=== PATIENT | female | born 1960 | race African-American/Black ===

== ENCOUNTER → 2017-03-14 | Outpatient (CLI) | payer OTHER ==
[~2017-03-14] MED LIST: BIOTIN1 MG PO; FLONASE 0.05%50 MCG NASAL; MUCINEX600 MG PO; PREDNISONE 20 M20 MG PO; PROTONIX40 MG PO; REPLACE1 EACH PO; VITAMIN B12 5500 MC1 PO; VITAMIN E 400I400 I1 PO
== END ==
LOC: RAD 01:48
DX: Z12.31 Encounter for screening mammogram for malignant neoplasm of breast (principal)

== ENCOUNTER → 2017-03-18 | Outpatient (CLI) | payer OTHER | LOC: ULTRA 10:59 | DX: N63 Unspecified lump in breast (principal) ==

== ENCOUNTER → 2017-04-21 | Outpatient (CLI) | payer OTHER ==
--- NOTE | ~2017-04-21 | S ---
[facility] [place] [address] SURGICAL PATH RPT PROCEDURE Name: MADY SIDDIQI Room #: REG [facility] Elizabeth.#: [id number] Admission: 04/21/17 Date of : 62 Discharge: Report #: [id number] Path Case #: [id number] PATHOLOGY REPORT COLLECTION DATE: 04/21/2017 RECEIVED DATE: 04/21/2017 SUBMITTING PHYS: Dr.Michael Mcdaniels OTHER PHYS: Dr. Velma Freed SPECIMEN(S) RECEIVED: A.Right breast 12:00, 5 cm FN * * * * * * * * * * * * FINAL DIAGNOSIS: "Right breast 12:00, 5 cm from nipple," image-guided needle biopsy: - Fibroadenoma, involving multiple cores, longest contiguous focus measuring 1.3 cm on the slide; no cytologic atypia or malignancy seen. (see comment) COMMENT: [employer] slides are co-reviewed with Dr. Rose Mccann. Clinical and radiographic correlation is recommended. (CLW:; 04/25/2017) PATHOLOGIST: Shahla Tobar M.D. REPORT ELECTRONICALLY SIGNED BY: Shahla Tobar M.D. DATE/TIME: 04/25/2017 22:14 * * * * * * * * * * * * GROSS PATHOLOGY: Received in formalin labeled "Mady Siddiqi, right breast 12:00 5 cm FN," are multiple needle cores of yellow-trivedi fibrofatty tissue measuring 1.7 x 1.5 x 0.3 cm in aggregate dimensions. The tissue is submitted in its entirety in cassette A1 through A3. The cold ischemic time is 15 minutes. The total formalin fixation time is 29 hours and 5 minutes. (TSD; 04/21/2017) CLINICAL HISTORY: Right breast nodule INITIAL CPT CODE(S): A; 46789 Professional services performed by [facility] at [facility] [address] [place] [address] SURGICAL PATH RPT PROCEDURE Name: SIDDIQIMADY [id number] Admission: 04/21/17 Date of : 62 Discharge: Report #: [id number] Path Case #: [id number] [address] [facility] , [place] [address] Technical services performed by [facility] at [address] [place] [address], [facility] [address] [address]. [facility] [address] [place] [address] PHONE: [phone] DIRECTOR: John Bonds M.D. * * * END OF REPORT * * *
== END | disposition home or self-care (01) ==
LOC: ULTRA 09:50
DX: D24.1 Benign neoplasm of right breast (principal)

== ENCOUNTER → 2017-10-12 | Outpatient (CLI) | payer OTHER | LOC: ULTRA 14:16 | DX: N63.10 Unspecified lump in the right breast, unspecified quadrant (principal) ==

== ENCOUNTER → 2018-02-07 | Outpatient (CLI) | payer OTHER | LOC: RAD 15:10 | DX: R92.8 Other abnormal and inconclusive findings on diagnostic imaging of breast (principal); N64.4 Mastodynia ==

== ENCOUNTER → 2018-08-24 | Outpatient (CLI) | payer OTHER | LOC: RAD 10:33 | DX: N64.4 Mastodynia (principal); R92.2 Inconclusive mammogram ==

== ENCOUNTER → 2019-10-25 | Outpatient (CLI) | payer OTHER | LOC: RAD 13:32 | DX: Z12.31 Encounter for screening mammogram for malignant neoplasm of breast (principal) ==

== ENCOUNTER → 2020-01-11 | Outpatient (CLI) | payer OTHER | LOC: ULTRA 10:19 | DX: N63.20 Unspecified lump in the left breast, unspecified quadrant (principal) ==

== ENCOUNTER → 2020-04-11 | Outpatient (CLI) | payer OTHER ==
[2020-04-11 09:15] LABS: CREATININE 0.7 mg/dL (0.6-1.0)
== END ==
LOC: CAT 08:04
PROVIDERS: ATTEND Obstetrics & Gynecology
DX: R10.9 Unspecified abdominal pain (principal)

== ENCOUNTER → 2020-04-18 | Outpatient (CLI) | payer OTHER | LOC: CAT 08:57 | PROVIDERS: ATTEND Obstetrics & Gynecology | DX: N85.2 Hypertrophy of uterus (principal); D25.9 Leiomyoma of uterus, unspecified ==

== ENCOUNTER → 2020-12-02 | Outpatient (CLI) | payer OTHER | LOC: BC 10-27 09:35 | PROVIDERS: ATTEND Obstetrics & Gynecology | DX: Z12.31 Encounter for screening mammogram for malignant neoplasm of breast (principal) ==

== ENCOUNTER 2021-10-08 10:46 | Emergency (ER) | payer OTHER ==
[~2021-10-08] VITALS: Ht 160 cm; Wt 81.7 kg
[2021-10-08 10:50] VITALS: BP 149/62
[2021-10-08] MEDS ORDERED: METFORMIN HCL1000 MG PO (11:00)
[2021-10-08 11:07] LABS: ABSOLUTE NEUTROPHILS 5.5 thou/uL (1.4-8.2); EOSINOPHILS 0.4 % (0.0-3.0); HEMATOCRIT 36.3 % (37.0-47.0); HEMOGLOBIN 12.6 gm/dL (12.0-15.0); MCHC 34.7 g/dL (28.0-37.0); MCV 83.6 fL (80.0-100.0); MONOCYTES 8.7 % (1.0-8.0); PLATELET COUNT 323 thou/uL (150-400); POLYS 60.9 % (36.0-66.0); RBC 4.35 mil/uL (4.20-5.00); RDW 13.4 % (10.5-14.5); WBC 9.1 thou/uL (4.0-11.0)
[2021-10-08 11:13] LABS: CALCIUM 9.3 mg/dL (8.5-10.1); CREATININE 0.8 mg/dL (0.6-1.0); POTASSIUM 4.2 mmol/L (3.5-5.1)
[2021-10-08 11:23] LABS: ALBUMIN 3.9 g/dL (3.4-5.0); TOTAL BILIRUBIN 0.3 mg/dL (0.2-1.0); TOTAL PROTEIN 7.3 g/dL (6.4-8.2)
--- NOTE | 2021-10-08 12:27 | EKG ---
[place] [address] [place] [address] ELECTROCARDIOGRAM REPORT Name: MALORIE CHRISTOPHER [id number] Admission: 10/08/21 Attend Phys: Discharge: 10/08/21 Date of : 62 Report #: [id number] [facility] ED Test Date: 2021-10-08 Test Time: 10:54:04 Pat Name: MALORIE CHRISTOPHER Department: Room: Gender: F Rn Patient Services: : 1960 Requested By: Dominik Little Order Number: [id number] MD: Enio Jacques Measurements Intervals [place] Rate: 73 P: 28 LA: 151 QRS: -19 QRSD: 93 T: 3 QT: 400 QTc: 441 Interpretive Statements Sinus rhythm Borderline left axis deviation Compared to ECG 11/11/2016 13:55:04 No significant changes Electronically Signed On 10-08-2021 12:27:11 MANAGER [employer]IP by Enio Jacques [email or web address] <ELECTRONICALLY SIGNED> By: Enio Jacques MD, [facility] 10/08/21 1227 1054 1054 Enio Jacques MD, FACC /EPI
== END 2021-10-08 12:04 | disposition home or self-care (01) ==
LOC: ER 10:46
PROVIDERS: Emergency Medicine
DX: R06.02 Shortness of breath (principal); R07.89 Other chest pain; E11.9 Type 2 diabetes mellitus without complications